=== PATIENT | male | born 1970 | race Two or more races ===

== ENCOUNTER 2016-08-16 15:51 | Inpatient (IN) | payer OTHER ==
[2016-08-16 16:42] VITALS: BMI 29.5
--- NOTE | 2016-08-16 18:21 | HP ---
CIWA Score - CIWA Score Nausea/Vomitin-Mild Nausea/No Vomiting Muscle Tremors: 5 Anxiety: 4-Mod. Anxious/Guarded Agitation: 4-Moderately Restless Paroxysmal Sweats: 2 Orientation: 1-Uncertain about Date Tacttile Disturbances: 0-None Auditory Disturbances: 0-None Visual Disturbances: 0-None Headache: 0-None Present CIWA-Ar Total Score: 17 Admission ROS BHS - HPI Chief Complaint: WITHDRAWAL SX Allergies/Adverse Reactions: Allergies Allergy/AdvReac Type Severity Reaction Status Date / Time No Known Allergies Allergy Verified 08/16/16 17:36 History of Present Illness: 45 YEARS OLD MALE WITH LONG HISTORY OF ALCOHOL DEPENDENCE, HAS HYPERTENSION DIABETES II AND DEPRESSION IS ADMITTED TO DETOX Exam Limitations: No Limitations - Ebola screening Have you traveled outside of the country in the last 21 days: No Have you had contact with anyone from an Ebola affected area: No Have you been sick,other than usual withdrawal symptoms: No Do you have a fever: No - Review of Systems Constitutional: Chills, Changes in sleep, Weight Stable EENT: reports: No Symptoms Reported Respiratory: reports: SOB with Exertion Cardiac: reports: No Symptoms Reported GI: reports: Nausea, Indigestion, Abdominal cramping : reports: No Symptoms Reported Musculoskeletal: reports: Joint Pain (LEFT KNEE) Integumentary: reports: Lesions (LEGS) Neuro: reports: Tremors Endocrine: reports: No Symptoms Reported Hematology: reports: No Symptoms Reported Psychiatric: reports: Judgement Intact, Depressed Other Systems: Reviewed and Negative Patient History - Patient Medical History Hx Anemia: No Hx Asthma: No Hx Chronic Obstructive Pulmonary Disease (COPD): No Hx Cancer: No Hx Cardiac Disorders: No Hx Congestive Heart Failure: No Hx Hypertension: Yes (pt is taking tablets from [facility]) Hx Hypercholesterolemia: No Hx Pacemaker: No HX Cerebrovascular Accident: No Hx Seizures: No Hx Dementia: No Hx Diabetes: Yes (IDDM) Hx Gastrointestinal Disorders: No Hx Liver Disease: No Hx Genitourinary Disorders: No Hx Sexually Transmitted Disorders: No Hx Renal Disease (ESRD): No Hx Thyroid Disease: No Hx Human Immunodeficiency Virus (HIV): No Hx Hepatitis C: No Hx Depression: Yes Hx Suicide Attempt: No Hx Bipolar Disorder: No Hx Schizophrenia: No - Patient Surgical History Past Surgical History: No - PPD History Previous Implant?: Yes Documented Results: Negative w/o proof Implanted On Prior [facility] Admission?: No PPD to be Administered?: Yes - Smoking Cessation Smoking history: Former smoker Have you smoked in the past 12 months: No If you are a former smoker, when did you quit?: 25 yrs ago Cigars Per Day: 0 Hx Chewing Tobacco Use: No Initiated information on smoking cessation: No - Substance & Tx. History Hx Alcohol Use: Yes Hx Substance Use: No Substance Use Type: Alcohol Hx Substance Use Treatment: Yes - Substances Abused Alcohol Route: Oral Frequency: Daily Amount used: 1 pint vodka and up Age of first use: 17 Date of Last Use: 08/15/16 Family Disease History - Family Disease History Family Disease History: Diabetes: Grandparent, Mother, Brother, Sister, Other: Father ( CIROSIS OF LIVER) Admission Physical Exam S - Vital Signs Vital Signs: Vital Signs - 24 hr 08/16/16 16:38 Temperature 98.9 F Pulse Rate 89 Respiratory 16 Rate Blood Pressure 158/91 - Physical General Appearance: Yes: Nourished, Appropriately Dressed, Moderate Distress, Tremorous, Irritable, Sweating, Anxious HEENTM: Yes: Hearing grossly Normal, Normal ENT Inspection, Normocephalic, Normal Voice Respiratory: Yes: Chest Non-Tender, Lungs Clear, Normal Breath Sounds, No Respiratory Distress, No Accessory Muscle Use Neck: Yes: Supple, Trachea in good position Breast: Yes: Breasts Symetrical Cardiology: Yes: Regular Rhythm, Regular Rate, S1, S2 Abdominal: Yes: Non Tender, Soft Genitourinary: Yes: Within Normal Limits Back: Yes: Normal Inspection Musculoskeletal: Yes: full range of Motion, Gait Steady Extremities: Yes: Normal Range of Motion, Non-Tender, Tremors, Other (ECZEMA OF THE LEGS) Neurological: Yes: Alert, Motor Strength 5/5, Normal Response, Depressed Affect Integumentary: Yes: Warm Lymphatic: Yes: Within Normal Limits - Diagnostic (1) Alcohol dependence with uncomplicated withdrawal Current Visit: Yes Status: Acute (2) Hypertension Current Visit: Yes Status: Acute Qualifiers: Hypertension type: essential hypertension Qualified Code(s): I10 - Essential (primary) hypertension (3) Diabetes mellitus, type II, insulin dependent Current Visit: Yes Status: Acute (4) GERD (gastroesophageal reflux disease) Current Visit: Yes Status: Acute Qualifiers: Esophagitis presence: without esophagitis Qualified Code(s): K21.9 - Gastro-esophageal reflux disease without esophagitis (5) Eczema craquele Current Visit: Yes Status: Acute Cleared for Admission [facility] - Detox or Rehab [facility] Level of Care: Medically Managed Detox Regimen/Protocol: Librium [facility] Breath Alcohol Content Breath Alcohol Content: 0 Urine Drug Screen - Results Drug Screen Negative: Yes
[2016-08-16] MEDS ORDERED: MAGNESIUM CITRATE 300 ML BOTTLE PO PRN (18:24)
[2016-08-16] MEDS ORDERED: hydrOXYzine PAMOATE 50 MG CAPSULE (FP) PO PRN (18:24)
[2016-08-16] MEDS ORDERED: ACETAMINOPHEN 325 MG TABLET (FP) PO PRN (18:24)
[2016-08-16] MEDS ORDERED: guaiFENesin/D-METHORPHAN HB 10 ML UNIT-DOSE CUPS PO PRN (18:24)
[2016-08-16] MEDS ORDERED: MAG HYDROX/AL HYDROX/SIMETH 30 ML UNIT-DOSE CUP PO PRN (18:24)
[2016-08-16] MEDS ORDERED: chlordiazePOXIDE HCL 25 MG CAPSULE PO PRN (18:24)
[2016-08-16] MEDS ORDERED: LOPERAMIDE HCL 2 MG CAPSULE PO PRN (18:24)
[2016-08-16] MEDS ORDERED: MENTHOL/PHENOL 1 EACH UD MM PRN (18:24)
[2016-08-16] MEDS ORDERED: IBUPROFEN 400 MG TABLET (FP) PO PRN (18:24)
[2016-08-16] MEDS ORDERED: MAGNESIUM HYDROX 2400MG/30ML ORAL SUSPENSION 30 ML CUP PO PRN (18:24)
[2016-08-16] MEDS ORDERED: P-EPHED 60MG/TRIPROLIDI 2.5MG TABLET PO PRN (18:24)
[2016-08-16] MEDS ORDERED: cloNIDine HCL 0.1 MG TABLET PO PRN (18:32)
[2016-08-16] MEDS ORDERED: chlordiazePOXIDE HCL 25 MG CAPSULE PO ONE (18:45)
[2016-08-16] MEDS ORDERED: INSULIN (NOVOLOG) ASPART 100 UNITS/ML 10ML VIAL ONE (21:29)
[2016-08-16] MEDS: chlordiazePOXIDE HCL 25 MG CAPSULE PO SCH (22:03)
[2016-08-16] MEDS: THIAMINE HCL 100 MG TABLET (FP) PO SCH (22:05)
[2016-08-16] MEDS: INSULIN SLIDING SCALE (NOVOLOG) 1 VIAL SQ SCH (22:08)
[2016-08-16] MEDS: TRIAMCINOLONE ACET 0.5% OINT 15 GM TUBE TP SCH (22:08)
[2016-08-16] MEDS: amLODIPine BESYLATE 5 MG TABLET (FP) PO SCH (22:08)
[2016-08-16 23:08] LABS: URINE APPEARANCE CLEAR; URINE BILIRUBIN NEGATIVE (NEGATIVE); URINE BLOOD NEGATIVE (NEGATIVE); URINE COLOR LT. YELLOW; URINE GLUCOSE (UA) 2+ (NEGATIVE); URINE KETONE NEGATIVE (NEGATIVE); URINE LEUK ESTERASE NEGATIVE (NEGATIVE); URINE NITRITE NEGATIVE (NEGATIVE); URINE PROTEIN NEGATIVE (NEGATIVE); URINE UROBILINOGEN 0.2 E.U/dl E.U./dl (0.2-1.0)
[2016-08-17] MEDS: chlordiazePOXIDE HCL 25 MG CAPSULE PO SCH ×4 (06:11→22:07)
[2016-08-17] MEDS: metFORMIN HCL 500 MG TABLET (FP) PO SCH (06:11)
[2016-08-17] MEDS ORDERED: INSULIN (NOVOLOG) ASPART 100 UNITS/ML 10ML VIAL ONE ×3 (06:26→16:51)
[2016-08-17] MEDS: INSULIN (NOVOLOG MIX 70/30) 100 UNITS/ML MDV SQ SCH ×2 (07:32→17:23)
[2016-08-17] MEDS: INSULIN SLIDING SCALE (NOVOLOG) 1 VIAL SQ SCH ×4 (07:33→22:08)
--- NOTE | 2016-08-17 09:06 | CONSULT ---
[facility] Psychiatric Consult - Data Date of interview: 08/17/16 Admission source: [facility] Identifying data: This is 45 years old male with psychiatric hospitalization history, mintoxicated with Alcohol Substance Abuse History: - Smoking Cessation. Smoking history: Former smoker. Have you smoked in the past 12 months: No. If you are a former smoker, when did you quit?: 25 yrs ago. Cigars Per Day: 0. Hx Chewing Tobacco Use: No. Initiated information on smoking cessation: No. - Substance & Tx. History. Hx Alcohol Use: Yes. Hx Substance Use: No. Substance Use Type: Alcohol. Hx Substance Use Treatment: Yes. - Substances Abused. Alcohol. Route: Oral. Frequency: Daily. Amount used: 1 pint vodka and up. Age of first use: 17. Date of Last Use: 08/15/16 Medical History: GERD, DM-I, Eczema, htn, Obesity, Psychiatric History: Patient reports insomnia, depression and anxiety, reports most recent psychiatric admission on 2015 at [facility] for safety, denies suicidal history, reports godd response for his insomnia on Remeron 15mg po qhs in the past Physical/Sexual Abuse/Trauma History: Denies Additional Comment: Remeron 15mg po qhs Mental Status Exam - Mental Status Exam Alert and Oriented to: Person Cognitive Function: Fair Patient Appearance: Unkempt Mood: Sad Affect: Mood Congruent Patient Behavior: Cooperative Speech Pattern: Appropriate Voice Loudness: Mildly Soft/Quiet Thought Process: Circumstantial, Goal Oriented Thought Disorder: Being Controlled Hallucinations: Denies Suicidal Ideation: Denies Homicidal Ideation: Denies Insight/Judgement: Fair Sleep: Difficulty falling asleep Appetite: Weight gain Muscle strength/Tone: Mild Hypotonicity Gait/Station: Shuffling Additional Comments: Remeron 15mg po qhs Psychiatric Findings - Problem List ([place] 1, 2,3) (1) Alcohol dependence with uncomplicated withdrawal Current Visit: Yes Status: Acute (2) Alcohol induced insomnia Current Visit: Yes Status: Acute (3) Alcohol-induced mood disorder Current Visit: Yes Status: Acute - Initial Treatment Plan Initial Treatment Plan: Remeron 15mg po qhs
[2016-08-17 10:06] LABS: MCH 31.5 pg (25.7-33.7); MCHC 33.8 g/dl (32.0-35.9); MEAN CELL VOLUME 93.1 fl (80-96); MEAN PLT VOLUME 8.3 fl (7.5-11.1); PLATELET COUNT 240 K/MM3 (134-434); RDW 14.3 % (11.9-15.9); WHITE BLOOD COUNT 6.5 K/mm3 (4.0-10.0)
[2016-08-17 10:16] LABS: ANION GAP 8 (8-16); CHOLESTEROL 212 mg/dL (50-200); CO2 28 mmol/L (21-32); CREATININE 0.9 mg/dL (0.7-1.3); GLUCOSE,RANDOM 164 mg/dL (74-106); LDL CHOLESTEROL (ONLY SJRH) 134 mg/dL (5-100); SGOT/AST 20 U/L (15-37); SGPT/ALT 27 U/L (12-78)
[2016-08-17 10:18] LABS: ALK PHOS 69 U/L (45-117); BILIRUBIN,TOTAL 0.4 mg/dL (0.2-1.0); TOT PROT 5.9 g/dl (6.4-8.2)
[2016-08-17] MEDS: PRENATAL VITAMINS W/ FOLIC ACID TABLET (FP) PO SCH (10:19)
[2016-08-17] MEDS: amLODIPine BESYLATE 5 MG TABLET (FP) PO SCH ×2 (10:20→22:07)
[2016-08-17] MEDS: TRIAMCINOLONE ACET 0.5% OINT 15 GM TUBE TP SCH ×4 (10:21→22:08)
[2016-08-17] MEDS ORDERED: INFLUENZA VACCINE 45 MCG/0.5 ML (MDV 16-17) IM ONE (12:00)
--- NOTE | 2016-08-17 12:34 | PN ---
[facility] CIWA - CIWA Score Nausea/Vomitin-Mild Nausea/No Vomiting Muscle Tremors: 4-Moderate,w/Arms Extend Anxiety: 4-Mod. Anxious/Guarded Agitation: 3 Paroxysmal Sweats: 3 Orientation: 0-Oriented Tacttile Disturbances: 0-None Auditory Disturbances: 0-None Visual Disturbances: 0-None Headache: 0-None Present CIWA-Ar Total Score: 15 S Progress Note (SOAP) Subjective: sweating,anxiety,tremors,interrupted sleep,restless Objective: 08/17/16 12:33 Vital Signs - 8 hr 08/17/16 08/17/16 06:38 10:27 Temperature 95.9 F L 98.2 F Pulse Rate 86 90 Respiratory 18 20 Rate Blood Pressure 154/97 156/91 Laboratory Last Values WBC 6.5 K/mm3 (4.0-10.0) 08/17/16 07:00 RBC 4.13 M/mm3 (4.00-5.60) 08/17/16 07:00 Hgb 13.0 GM/dL (11.7-16.9) 08/17/16 07:00 Hct 38.4 % (35.4-49) 08/17/16 07:00 MCV 93.1 fl (80-96) 08/17/16 07:00 MCHC 33.8 g/dl (32.0-35.9) 08/17/16 07:00 RDW 14.3 % (11.9-15.9) 08/17/16 07:00 Plt Count 240 K/MM3 (134-434) 08/17/16 07:00 MPV 8.3 fl (7.5-11.1) 08/17/16 07:00 Sodium 138 mmol/L (136-145) 08/17/16 07:00 Potassium 3.8 mmol/L (3.5-5.1) 08/17/16 07:00 Chloride 102 mmol/L (98-107) 08/17/16 07:00 Carbon Dioxide 28 mmol/L (21-32) 08/17/16 07:00 Anion Gap 8 (8-16) 08/17/16 07:00 BUN 14 mg/dL (7-18) 08/17/16 07:00 Creatinine 0.9 mg/dL (0.7-1.3) 08/17/16 07:00 Creat Clearance w eGFR > 60 (>60) 08/17/16 07:00 POC Glucometer 198 UNITS (()) 08/17/16 11:36 Random Glucose 164 mg/dL (74-106) H 08/17/16 07:00 Calcium 8.0 mg/dL (8.5-10.1) L 08/17/16 07:00 Total Bilirubin 0.4 mg/dL (0.2-1.0) 08/17/16 07:00 AST 20 U/L (15-37) 08/17/16 07:00 ALT 27 U/L (12-78) 08/17/16 07:00 Alkaline Phosphatase 69 U/L (45-117) 08/17/16 07:00 Total Protein 5.9 g/dl (6.4-8.2) L 08/17/16 07:00 Albumin 3.0 g/dl (3.4-5.0) L 08/17/16 07:00 Triglycerides 345 mg/dL (35-160) H 08/17/16 07:00 Cholesterol 212 mg/dL (50-200) H 08/17/16 07:00 Total LDL Cholesterol 134 mg/dL (5-100) H 08/17/16 07:00 HDL Cholesterol 43 mg/dL (40-60) 08/17/16 07:00 Urine Color Lt. yellow 08/16/16 22:05 Urine Appearance Clear 08/16/16 22:05 Urine pH 6.0 (5.0-8.0) 08/16/16 22:05 Ur Specific [place] 1.025 (1.001-1.035) 08/16/16 22:05 Urine Protein Negative (NEGATIVE) 08/16/16 22:05 Urine Glucose (UA) 2+ (NEGATIVE) H 08/16/16 22:05 Urine Ketones Negative (NEGATIVE) 08/16/16 22:05 Urine Blood Negative (NEGATIVE) 08/16/16 22:05 Urine Nitrite Negative (NEGATIVE) 08/16/16 22:05 Urine Bilirubin Negative (NEGATIVE) 08/16/16 22:05 Urine Urobilinogen 0.2 e.u/dl E.U./dl (0.2-1.0) 08/16/16 22:05 Ur Leukocyte Esterase Negative (NEGATIVE) 08/16/16 22:05 RPR Titer Nonreactive (NONREACTIVE) 08/17/16 07:00 labs noted Assessment: 08/17/16 12:33 withdrawal sx. Plan: continue detox
--- NOTE | 2016-08-17 16:18 | EKG ---
Test Reason : Blood Pressure : / mmHG Vent. Rate : 087 BPM Atrial Rate : 087 BPM P-R Int : 162 ms QRS Dur : 084 ms QT Int : 342 ms P-R-T Axes : 067 065 106 degrees QTc Int : 411 ms NORMAL SINUS RHYTHM POSSIBLE LEFT ATRIAL ENLARGEMENT T WAVE ABNORMALITY, CONSIDER ANTEROLATERAL ISCHEMIA ABNORMAL ECG NO PREVIOUS ECGS AVAILABLE Confirmed by YENI BESS MD ([id number]) on 08/17/2016 4:18:26 PM Referred By: Confirmed By:YENI BESS MD
[2016-08-17] MEDS: THIAMINE HCL 100 MG TABLET (FP) PO SCH (22:07)
[2016-08-17] MEDS: MIRTAZAPINE 15 MG TABLET (FP) PO SCH (22:07)
[2016-08-17] MEDS: diphenhydrAMINE HCL 50 MG CAPSULE PO PRN (22:10)
[2016-08-18] MEDS: chlordiazePOXIDE HCL 25 MG CAPSULE PO SCH ×3 (06:23→17:20)
[2016-08-18] MEDS: metFORMIN HCL 500 MG TABLET (FP) PO SCH (06:23)
[2016-08-18] MEDS ORDERED: INSULIN (NOVOLOG) ASPART 100 UNITS/ML 10ML VIAL ONE ×3 (07:39→17:10)
[2016-08-18] MEDS: INSULIN SLIDING SCALE (NOVOLOG) 1 VIAL SQ SCH ×4 (07:45→21:47)
[2016-08-18] MEDS: INSULIN (NOVOLOG MIX 70/30) 100 UNITS/ML MDV SQ SCH ×2 (07:45→17:25)
[2016-08-18] MEDS: TRIAMCINOLONE ACET 0.5% OINT 15 GM TUBE TP SCH ×4 (10:06→21:48)
[2016-08-18] MEDS: PRENATAL VITAMINS W/ FOLIC ACID TABLET (FP) PO SCH (10:06)
[2016-08-18] MEDS: amLODIPine BESYLATE 5 MG TABLET (FP) PO SCH ×2 (10:06→22:07)
--- NOTE | 2016-08-18 10:44 | PN ---
[facility] CIWA - CIWA Score Nausea/Vomitin-No Nausea/No Vomiting Muscle Tremors: 4-Moderate,w/Arms Extend Anxiety: 4-Mod. Anxious/Guarded Agitation: 4-Moderately Restless Paroxysmal Sweats: 1-Minimal Palms Moist Orientation: 0-Oriented Tacttile Disturbances: 3-Moderate Itch/Numb/Burn Auditory Disturbances: 0-None Visual Disturbances: 0-None Headache: 0-None Present CIWA-Ar Total Score: 16 BHS Progress Note (SOAP) Subjective: ANXIETY,SWEATS,TREMORS,CONSTIPATED. Objective: 08/18/16 10:43 Vital Signs Temperature 98.4 F 08/18/16 09:38 Pulse Rate 87 08/18/16 09:38 Respiratory Rate 18 08/18/16 09:38 Blood Pressure 125/80 08/18/16 09:38 O2 Sat by Pulse Oximetry (%) Laboratory Last Values WBC 6.5 K/mm3 (4.0-10.0) 08/17/16 07:00 RBC 4.13 M/mm3 (4.00-5.60) 08/17/16 07:00 Hgb 13.0 GM/dL (11.7-16.9) 08/17/16 07:00 Hct 38.4 % (35.4-49) 08/17/16 07:00 MCV 93.1 fl (80-96) 08/17/16 07:00 MCHC 33.8 g/dl (32.0-35.9) 08/17/16 07:00 RDW 14.3 % (11.9-15.9) 08/17/16 07:00 Plt Count 240 K/MM3 (134-434) 08/17/16 07:00 MPV 8.3 fl (7.5-11.1) 08/17/16 07:00 Sodium 138 mmol/L (136-145) 08/17/16 07:00 Potassium 3.8 mmol/L (3.5-5.1) 08/17/16 07:00 Chloride 102 mmol/L (98-107) 08/17/16 07:00 Carbon Dioxide 28 mmol/L (21-32) 08/17/16 07:00 Anion Gap 8 (8-16) 08/17/16 07:00 BUN 14 mg/dL (7-18) 08/17/16 07:00 Creatinine 0.9 mg/dL (0.7-1.3) 08/17/16 07:00 Creat Clearance w eGFR > 60 (>60) 08/17/16 07:00 POC Glucometer 203 UNITS (()) 08/18/16 06:22 Random Glucose 164 mg/dL (74-106) H 08/17/16 07:00 Calcium 8.0 mg/dL (8.5-10.1) L 08/17/16 07:00 Total Bilirubin 0.4 mg/dL (0.2-1.0) 08/17/16 07:00 AST 20 U/L (15-37) 08/17/16 07:00 ALT 27 U/L (12-78) 08/17/16 07:00 Alkaline Phosphatase 69 U/L (45-117) 08/17/16 07:00 Total Protein 5.9 g/dl (6.4-8.2) L 08/17/16 07:00 Albumin 3.0 g/dl (3.4-5.0) L 08/17/16 07:00 Triglycerides 345 mg/dL (35-160) H 08/17/16 07:00 Cholesterol 212 mg/dL (50-200) H 08/17/16 07:00 Total LDL Cholesterol 134 mg/dL (5-100) H 08/17/16 07:00 HDL Cholesterol 43 mg/dL (40-60) 08/17/16 07:00 Urine Color Lt. yellow 08/16/16 22:05 Urine Appearance Clear 08/16/16 22:05 Urine pH 6.0 (5.0-8.0) 08/16/16 22:05 Ur Specific [place] 1.025 (1.001-1.035) 08/16/16 22:05 Urine Protein Negative (NEGATIVE) 08/16/16 22:05 Urine Glucose (UA) 2+ (NEGATIVE) H 08/16/16 22:05 Urine Ketones Negative (NEGATIVE) 08/16/16 22:05 Urine Blood Negative (NEGATIVE) 08/16/16 22:05 Urine Nitrite Negative (NEGATIVE) 08/16/16 22:05 Urine Bilirubin Negative (NEGATIVE) 08/16/16 22:05 Urine Urobilinogen 0.2 e.u/dl E.U./dl (0.2-1.0) 08/16/16 22:05 Ur Leukocyte Esterase Negative (NEGATIVE) 08/16/16 22:05 RPR Titer Nonreactive (NONREACTIVE) 08/17/16 07:00 Assessment: 08/18/16 10:43 WITHDRAWAL SX Plan: CONTINUE DETOX MOM PRN
[2016-08-18] MEDS: MIRTAZAPINE 15 MG TABLET (FP) PO SCH (22:07)
[2016-08-18] MEDS: THIAMINE HCL 100 MG TABLET (FP) PO SCH (22:07)
[2016-08-18] MEDS: chlordiazePOXIDE 5 MG CAPSULE PO SCH (22:07)
[2016-08-18] MEDS: diphenhydrAMINE HCL 50 MG CAPSULE PO PRN (22:07)
--- NOTE | 2016-08-18 23:09 | PN ---
BHS Progress Note Note: +ppd chest x ray continue detox
[2016-08-19] MEDS: metFORMIN HCL 500 MG TABLET (FP) PO SCH (06:08)
[2016-08-19] MEDS: chlordiazePOXIDE 5 MG CAPSULE PO SCH ×3 (06:08→17:35)
[2016-08-19] MEDS ORDERED: INSULIN (NOVOLOG) ASPART 100 UNITS/ML 10ML VIAL ONE ×3 (07:00→17:08)
[2016-08-19] MEDS: INSULIN (NOVOLOG MIX 70/30) 100 UNITS/ML MDV SQ SCH ×2 (07:10→17:37)
[2016-08-19] MEDS: INSULIN SLIDING SCALE (NOVOLOG) 1 VIAL SQ SCH ×4 (07:11→22:23)
[2016-08-19] MEDS: PRENATAL VITAMINS W/ FOLIC ACID TABLET (FP) PO SCH (10:08)
[2016-08-19] MEDS: TRIAMCINOLONE ACET 0.5% OINT 15 GM TUBE TP SCH ×4 (10:08→22:22)
[2016-08-19] MEDS: amLODIPine BESYLATE 5 MG TABLET (FP) PO SCH ×2 (10:08→22:22)
--- NOTE | 2016-08-19 15:56 | PN ---
BHS Progress Note (SOAP) Subjective: Fatigue, Tremors, Sweating, Interrupted Sleep. Objective: PT. A & O X 2 (DISORIENTED ABOUT DAY / DATE). 08/19/16 15:54 Vital Signs Temperature 96.4 F L 08/19/16 14:30 Pulse Rate 94 H 08/19/16 14:30 Respiratory Rate 18 08/19/16 14:30 Blood Pressure 132/91 08/19/16 14:30 O2 Sat by Pulse Oximetry (%) Laboratory Last Values WBC 6.5 K/mm3 (4.0-10.0) 08/17/16 07:00 RBC 4.13 M/mm3 (4.00-5.60) 08/17/16 07:00 Hgb 13.0 GM/dL (11.7-16.9) 08/17/16 07:00 Hct 38.4 % (35.4-49) 08/17/16 07:00 MCV 93.1 fl (80-96) 08/17/16 07:00 MCHC 33.8 g/dl (32.0-35.9) 08/17/16 07:00 RDW 14.3 % (11.9-15.9) 08/17/16 07:00 Plt Count 240 K/MM3 (134-434) 08/17/16 07:00 MPV 8.3 fl (7.5-11.1) 08/17/16 07:00 Sodium 138 mmol/L (136-145) 08/17/16 07:00 Potassium 3.8 mmol/L (3.5-5.1) 08/17/16 07:00 Chloride 102 mmol/L (98-107) 08/17/16 07:00 Carbon Dioxide 28 mmol/L (21-32) 08/17/16 07:00 Anion Gap 8 (8-16) 08/17/16 07:00 BUN 14 mg/dL (7-18) 08/17/16 07:00 Creatinine 0.9 mg/dL (0.7-1.3) 08/17/16 07:00 Creat Clearance w eGFR > 60 (>60) 08/17/16 07:00 POC Glucometer 188 UNITS (()) 08/19/16 06:07 Random Glucose 164 mg/dL (74-106) H 08/17/16 07:00 Calcium 8.0 mg/dL (8.5-10.1) L 08/17/16 07:00 Total Bilirubin 0.4 mg/dL (0.2-1.0) 08/17/16 07:00 AST 20 U/L (15-37) 08/17/16 07:00 ALT 27 U/L (12-78) 08/17/16 07:00 Alkaline Phosphatase 69 U/L (45-117) 08/17/16 07:00 Total Protein 5.9 g/dl (6.4-8.2) L 08/17/16 07:00 Albumin 3.0 g/dl (3.4-5.0) L 08/17/16 07:00 Triglycerides 345 mg/dL (35-160) H 08/17/16 07:00 Cholesterol 212 mg/dL (50-200) H 08/17/16 07:00 Total LDL Cholesterol 134 mg/dL (5-100) H 08/17/16 07:00 HDL Cholesterol 43 mg/dL (40-60) 08/17/16 07:00 Urine Color Lt. yellow 08/16/16 22:05 Urine Appearance Clear 08/16/16 22:05 Urine pH 6.0 (5.0-8.0) 08/16/16 22:05 Ur Specific [place] 1.025 (1.001-1.035) 08/16/16 22:05 Urine Protein Negative (NEGATIVE) 08/16/16 22:05 Urine Glucose (UA) 2+ (NEGATIVE) H 08/16/16 22:05 Urine Ketones Negative (NEGATIVE) 08/16/16 22:05 Urine Blood Negative (NEGATIVE) 08/16/16 22:05 Urine Nitrite Negative (NEGATIVE) 08/16/16 22:05 Urine Bilirubin Negative (NEGATIVE) 08/16/16 22:05 Urine Urobilinogen 0.2 e.u/dl E.U./dl (0.2-1.0) 08/16/16 22:05 Ur Leukocyte Esterase Negative (NEGATIVE) 08/16/16 22:05 RPR Titer Nonreactive (NONREACTIVE) 08/17/16 07:00 LABS NOTED. Assessment: 08/19/16 15:56 WITHDRAWAL SYMPTOMS. Plan: CONTINUE DETOX. ADVISED PT. TO FOLLOW-UP WITH [facility] [employer] / REHAB MEDICAL PROVIDER AFTER DISCHARGE FROM DETOX FOR GENERAL MEDICAL ASSESSMENT AND FOR ABNORMAL LAB VALUES.
[2016-08-19] MEDS: THIAMINE HCL 100 MG TABLET (FP) PO SCH (22:22)
[2016-08-19] MEDS: diphenhydrAMINE HCL 50 MG CAPSULE PO PRN (22:22)
[2016-08-19] MEDS: MIRTAZAPINE 15 MG TABLET (FP) PO SCH (22:22)
[2016-08-19] MEDS: chlordiazePOXIDE HCL 10 MG CAPSULE PO SCH (22:22)
[2016-08-20] MEDS: chlordiazePOXIDE HCL 10 MG CAPSULE PO SCH ×3 (06:04→17:29)
[2016-08-20] MEDS: metFORMIN HCL 500 MG TABLET (FP) PO SCH (06:04)
[2016-08-20] MEDS ORDERED: INSULIN (NOVOLOG) ASPART 100 UNITS/ML 10ML VIAL ONE ×3 (06:09→21:40)
[2016-08-20] MEDS: INSULIN (NOVOLOG MIX 70/30) 100 UNITS/ML MDV SQ SCH ×2 (07:43→16:30)
[2016-08-20] MEDS: INSULIN SLIDING SCALE (NOVOLOG) 1 VIAL SQ SCH ×4 (07:43→22:38)
[2016-08-20] MEDS: PRENATAL VITAMINS W/ FOLIC ACID TABLET (FP) PO SCH (10:20)
[2016-08-20] MEDS: amLODIPine BESYLATE 5 MG TABLET (FP) PO SCH ×2 (10:20→22:38)
[2016-08-20] MEDS: TRIAMCINOLONE ACET 0.5% OINT 15 GM TUBE TP SCH ×4 (10:21→22:36)
--- NOTE | 2016-08-20 11:02 | PN ---
BHS Progress Note (SOAP) Subjective: Sweating,interrupted sleep,restless. Objective: 08/20/16 11:01 Vital Signs - 8 hr 08/20/16 08/20/16 03:30 06:26 Temperature 97.4 F L Pulse Rate 91 H Respiratory 18 18 Rate Blood Pressure 124/87 Laboratory Last Values WBC 6.5 K/mm3 (4.0-10.0) 08/17/16 07:00 RBC 4.13 M/mm3 (4.00-5.60) 08/17/16 07:00 Hgb 13.0 GM/dL (11.7-16.9) 08/17/16 07:00 Hct 38.4 % (35.4-49) 08/17/16 07:00 MCV 93.1 fl (80-96) 08/17/16 07:00 MCHC 33.8 g/dl (32.0-35.9) 08/17/16 07:00 RDW 14.3 % (11.9-15.9) 08/17/16 07:00 Plt Count 240 K/MM3 (134-434) 08/17/16 07:00 MPV 8.3 fl (7.5-11.1) 08/17/16 07:00 Sodium 138 mmol/L (136-145) 08/17/16 07:00 Potassium 3.8 mmol/L (3.5-5.1) 08/17/16 07:00 Chloride 102 mmol/L (98-107) 08/17/16 07:00 Carbon Dioxide 28 mmol/L (21-32) 08/17/16 07:00 Anion Gap 8 (8-16) 08/17/16 07:00 BUN 14 mg/dL (7-18) 08/17/16 07:00 Creatinine 0.9 mg/dL (0.7-1.3) 08/17/16 07:00 Creat Clearance w eGFR > 60 (>60) 08/17/16 07:00 POC Glucometer 214 UNITS (()) 08/20/16 06:08 Random Glucose 164 mg/dL (74-106) H 08/17/16 07:00 Calcium 8.0 mg/dL (8.5-10.1) L 08/17/16 07:00 Total Bilirubin 0.4 mg/dL (0.2-1.0) 08/17/16 07:00 AST 20 U/L (15-37) 08/17/16 07:00 ALT 27 U/L (12-78) 08/17/16 07:00 Alkaline Phosphatase 69 U/L (45-117) 08/17/16 07:00 Total Protein 5.9 g/dl (6.4-8.2) L 08/17/16 07:00 Albumin 3.0 g/dl (3.4-5.0) L 08/17/16 07:00 Triglycerides 345 mg/dL (35-160) H 08/17/16 07:00 Cholesterol 212 mg/dL (50-200) H 08/17/16 07:00 Total LDL Cholesterol 134 mg/dL (5-100) H 08/17/16 07:00 HDL Cholesterol 43 mg/dL (40-60) 08/17/16 07:00 Urine Color Lt. yellow 08/16/16 22:05 Urine Appearance Clear 08/16/16 22:05 Urine pH 6.0 (5.0-8.0) 08/16/16 22:05 Ur Specific [place] 1.025 (1.001-1.035) 08/16/16 22:05 Urine Protein Negative (NEGATIVE) 08/16/16 22:05 Urine Glucose (UA) 2+ (NEGATIVE) H 08/16/16 22:05 Urine Ketones Negative (NEGATIVE) 08/16/16 22:05 Urine Blood Negative (NEGATIVE) 08/16/16 22:05 Urine Nitrite Negative (NEGATIVE) 08/16/16 22:05 Urine Bilirubin Negative (NEGATIVE) 08/16/16 22:05 Urine Urobilinogen 0.2 e.u/dl E.U./dl (0.2-1.0) 08/16/16 22:05 Ur Leukocyte Esterase Negative (NEGATIVE) 08/16/16 22:05 RPR Titer Nonreactive (NONREACTIVE) 08/17/16 07:00 labs noted Assessment: 08/20/16 11:01 Withdrawal sx. Plan: Continue detox
[2016-08-20] MEDS: THIAMINE HCL 100 MG TABLET (FP) PO SCH (22:38)
[2016-08-20] MEDS: diphenhydrAMINE HCL 50 MG CAPSULE PO PRN (22:38)
[2016-08-20] MEDS: MIRTAZAPINE 15 MG TABLET (FP) PO SCH (22:38)
[2016-08-21] MEDS: metFORMIN HCL 500 MG TABLET (FP) PO SCH (06:26)
[2016-08-21] MEDS: INSULIN SLIDING SCALE (NOVOLOG) 1 VIAL SQ SCH (06:26)
[2016-08-21] MEDS ORDERED: INSULIN (NOVOLOG) ASPART 100 UNITS/ML 10ML VIAL ONE (07:43)
[2016-08-21] MEDS: INSULIN (NOVOLOG MIX 70/30) 100 UNITS/ML MDV SQ SCH (08:35)
[2016-08-21] MEDS: amLODIPine BESYLATE 5 MG TABLET (FP) PO SCH (10:16)
[2016-08-21] MEDS: TRIAMCINOLONE ACET 0.5% OINT 15 GM TUBE TP SCH (10:16)
[2016-08-21] MEDS: PRENATAL VITAMINS W/ FOLIC ACID TABLET (FP) PO SCH (10:16)
[2016-08-21 10:22] VITALS: BP 125/89; PULSE 105; TEMP 96.6
--- NOTE | 2016-08-21 16:09 | DS ---
[facility] Detox Discharge Summary Admission Date: 08/16/16 Discharge Date: 08/21/16 - History Present History: Alcohol Dependence Additional Comments: ADVISED PATIENT TO FOLLOW-UP WITH [facility] / REHAB MEDICAL PROVIDER AFTER DISCHARGE FROM DETOX FOR GENERAL MEDICAL ASSESSMENT AND FOR ABNORMAL LAB VALUES. Pertinent Past History: HTN, GERD, Type II DM. - Physical Exam Results Vital Signs: Vital Signs Temperature 96.6 F L 08/21/16 10:22 Pulse Rate 105 H 08/21/16 10:22 Respiratory Rate 18 08/21/16 10:22 Blood Pressure 125/89 08/21/16 10:22 O2 Sat by Pulse Oximetry (%) Pertinent Admission Physical Exam Findings: WITHDRAWAL SYMPTOMS. Laboratory Last Values WBC 6.5 K/mm3 (4.0-10.0) 08/17/16 07:00 RBC 4.13 M/mm3 (4.00-5.60) 08/17/16 07:00 Hgb 13.0 GM/dL (11.7-16.9) 08/17/16 07:00 Hct 38.4 % (35.4-49) 08/17/16 07:00 MCV 93.1 fl (80-96) 08/17/16 07:00 MCHC 33.8 g/dl (32.0-35.9) 08/17/16 07:00 RDW 14.3 % (11.9-15.9) 08/17/16 07:00 Plt Count 240 K/MM3 (134-434) 08/17/16 07:00 MPV 8.3 fl (7.5-11.1) 08/17/16 07:00 Sodium 138 mmol/L (136-145) 08/17/16 07:00 Potassium 3.8 mmol/L (3.5-5.1) 08/17/16 07:00 Chloride 102 mmol/L (98-107) 08/17/16 07:00 Carbon Dioxide 28 mmol/L (21-32) 08/17/16 07:00 Anion Gap 8 (8-16) 08/17/16 07:00 BUN 14 mg/dL (7-18) 08/17/16 07:00 Creatinine 0.9 mg/dL (0.7-1.3) 08/17/16 07:00 Creat Clearance w eGFR > 60 (>60) 08/17/16 07:00 POC Glucometer 204 UNITS (()) 08/21/16 06:22 Random Glucose 164 mg/dL (74-106) H 08/17/16 07:00 Calcium 8.0 mg/dL (8.5-10.1) L 08/17/16 07:00 Total Bilirubin 0.4 mg/dL (0.2-1.0) 08/17/16 07:00 AST 20 U/L (15-37) 08/17/16 07:00 ALT 27 U/L (12-78) 08/17/16 07:00 Alkaline Phosphatase 69 U/L (45-117) 08/17/16 07:00 Total Protein 5.9 g/dl (6.4-8.2) L 08/17/16 07:00 Albumin 3.0 g/dl (3.4-5.0) L 08/17/16 07:00 Triglycerides 345 mg/dL (35-160) H 08/17/16 07:00 Cholesterol 212 mg/dL (50-200) H 08/17/16 07:00 Total LDL Cholesterol 134 mg/dL (5-100) H 08/17/16 07:00 HDL Cholesterol 43 mg/dL (40-60) 08/17/16 07:00 Urine Color Lt. yellow 08/16/16 22:05 Urine Appearance Clear 08/16/16 22:05 Urine pH 6.0 (5.0-8.0) 08/16/16 22:05 Ur Specific [place] 1.025 (1.001-1.035) 08/16/16 22:05 Urine Protein Negative (NEGATIVE) 08/16/16 22:05 Urine Glucose (UA) 2+ (NEGATIVE) H 08/16/16 22:05 Urine Ketones Negative (NEGATIVE) 08/16/16 22:05 Urine Blood Negative (NEGATIVE) 08/16/16 22:05 Urine Nitrite Negative (NEGATIVE) 08/16/16 22:05 Urine Bilirubin Negative (NEGATIVE) 08/16/16 22:05 Urine Urobilinogen 0.2 e.u/dl E.U./dl (0.2-1.0) 08/16/16 22:05 Ur Leukocyte Esterase Negative (NEGATIVE) 08/16/16 22:05 RPR Titer Nonreactive (NONREACTIVE) 08/17/16 07:00 LABS NOTED. - Treatment Hospital Course: Detox Protocol Followed, Detoxed Safely, Responded well, Discharged Condition Good - Medication Discharge Medications: Ambulatory Orders Mirtazapine [Remeron -] 15 mg PO HS #30 tablet 08/17/16 Insulin (Novolog 70/30) [Novolog Mix 70/30 Flexpen -] 25 units SQ BIDAC #5 pen 08/21/16 Metformin HCl [Glucophage -] 500 mg PO BID #60 tablet 08/21/16 - Diagnosis (1) Alcohol dependence with uncomplicated withdrawal Status: Acute (2) Alcohol-induced mood disorder Status: Acute (3) Diabetes mellitus, type II, insulin dependent Status: Chronic (4) GERD (gastroesophageal reflux disease) Status: Chronic Qualifiers: Esophagitis presence: without esophagitis Qualified Code(s): K21.9 - Gastro-esophageal reflux disease without esophagitis (5) Hypertension Status: Chronic Qualifiers: Hypertension type: essential hypertension Qualified Code(s): I10 - Essential (primary) hypertension (6) PPD positive Status: Acute - AMA Did Patient Leave Against Medical Advice: No
== END 2016-08-21 11:19 | disposition home or self-care (01) | DRG 775 ==
LOC: YASAS 15:51 → Y3N 18:21
PROVIDERS: ADMIT Internal Medicine; ATTEND Internal Medicine
PROC: HZ2ZZZZ Detoxification Services for Substance Abuse Treatment (ICD-10-PCS; principal; 2016-08-16)
DX: F10.230 Alcohol dependence with withdrawal, uncomplicated (principal); F10.24 Alcohol dependence with alcohol-induced mood disorder; E11.9 Type 2 diabetes mellitus without complications; Z79.4 Long term (current) use of insulin; K21.9 Gastro-esophageal reflux disease without esophagitis; I10 Essential (primary) hypertension; R76.11 Nonspecific reaction to tuberculin skin test without active tuberculosis; Z87.891 Personal history of nicotine dependence; L30.8 Other specified dermatitis
CPT/HCPCS: 36415; 71010-TC; 80053; 80061; 81003; 83721; 85027; 86593; 93005; 93010